=== PATIENT | female | born 1940 | race Caucasian/White ===

== ENCOUNTER 2016-09-11 06:51 | Day surgery (SDC) | payer MEDICARE ==
[~2016-09-11 06:51] MED LIST: ACETAMINOPHEN 1000MG/100 ML PREMIX IV ONE; CEFAZOLIN 2 Gram 50 ML IVPB ONE
[2016-09-11] MEDS ORDERED: ONDANSETRON HCL IV 4 MG/2 ML VIAL IVP ONE (14:28)
[2016-09-11] MEDS ORDERED: SEVOFLURANE 250 ML INH ONE (14:28)
[2016-09-11] MEDS ORDERED: PROPOFOL 10 MG/ML VIAL IV ONE (14:28)
[2016-09-11] MEDS ORDERED: BACITRACIN 50,000 UNIT VIAL IM ONE (14:28)
[2016-09-11] MEDS ORDERED: FENTANYL PF 100MCG/2ML VIAL IV ONE (14:28)
[2016-09-11] MEDS ORDERED: VANCOMYCIN HCL 1 GM VIAL IVPB ONE (14:28)
[2016-09-11] MEDS ORDERED: LIDOCAINE 2% MDV (20MG/ML) 20ML VIAL IV ONE (14:28)
[2016-09-11] MEDS ORDERED: VASOPRESSIN 20 U/ML VIAL IM ONE (14:28)
[2016-09-11] MEDS ORDERED: MIDAZOLAM HCL 2MG/2ML VIAL IV ONE (14:28)
--- NOTE | 2016-09-12 08:41 | Operative Note ---
DATE OF SURGERY: 09/11/2016 PREOPERATIVE DIAGNOSIS: Urinary stress incontinence. POSTOPERATIVE DIAGNOSIS: Urinary stress incontinence. OPERATION: TOT with Obtryx diagnostic cystoscopy. PHYSICIAN: Penny Mustafa DO Anesthesia: General COMPLICATIONS: None. Estimated Blood Loss: Minimal. PROCEDURE: The patient was prepped for surgery and brought back to the Operative Suite. She was placed under general anesthesia. She was sterilely prepped and draped in the dorsal lithotomy position. Rhoades catheter was placed. Rika's were used to merchandise pickup/receiving associate the area under the urethrovesical junction in a horizontal fashion. The area was injected with a dilute solution of vasopressin. An incision was made. The mucosa was dissected off the bladder. Laterally, I dissected a tunnel back to the obturator fascia on the left and then the right-hand side. Small incisions were made in the groin above the adductor muscle. Using a halo, I placed that through the left groin incision into the vaginal area. The mesh was brought back out. The same thing was done on the right-hand side. A diagnostic cystoscopy was done. No perforation or abnormalities were noted. The cystoscope was removed. The TOT mesh was tightened and removed from its sleeve. The vaginal incision was closed with 2-0 Vicryl in a locking fashion. FloSeal was placed in the tunnels just because there was some slight oozing. The mesh was cut to the appropriate length. The groin incisions were closed with Dermabond. The patient was then awoken from general anesthesia and brought back to the Recovery Room in satisfactory condition. Penny Mustafa DO [facility]abel
== END 2016-09-11 10:10 | disposition home or self-care (01) ==
LOC: SUR 06:51
PROVIDERS: ATTEND Obstetrics & Gynecology
DX: N81.4 Uterovaginal prolapse, unspecified (principal); E78.00 Pure hypercholesterolemia, unspecified; I10 Essential (primary) hypertension
CPT/HCPCS: 57288; 00860; J2405; J3370; J3010; J0690; 93005; C1781; J3490